=== PATIENT | female | born 1960 | race American Indian/Alaskan Native ===

== ENCOUNTER 2017-11-26 14:09 | Emergency (ER) | payer MEDICARE ==
[2017-11-26] MEDS ORDERED: ZOFRAN IV ONE (18:43)
[2017-11-26] MEDS ORDERED: NACL 0.9% 1000 ML 1,000 ML IV ONE (18:43)
[2017-11-26 19:17] LABS: Hematocrit 36.8 % (30.3-42.9); Hemoglobin 12.7 gm/dl (10.1-14.3); Mean Corpuscular HGB Conc 34 % (30-34); Mean Corpuscular Hemoglobin 33 pg (28-32); Mean Corpuscular Volume 95 fl (79-97); Platelet Count 199 K/mm3 (140-440); Red Blood Count 3.88 M/mm3 (3.65-5.03)
[2017-11-26 19:28] LABS: BUN/Creatinine Ratio 15; Blood Urea Nitrogen 12 mg/dL (7-17); Calcium 9.1 mg/dL (8.4-10.2)
[2017-11-26 19:29] LABS: Hemolysis Index 16
[2017-11-26 19:50] LABS: Basophils % (Manual) 0 % (0.0-1.8); Total Cells Counted 100
[2017-11-26 19:51] LABS: Platelet Clumps Rare; Platelet Estimate Consistent w Auto
[2017-11-26 19:52] LABS: Anisocytosis 1+; Poikilocytosis Few
[2017-11-26] MEDS ORDERED: TORADOL ONE (21:21)
[2017-11-26] MEDS ORDERED: TORADOL IV ONE (21:24)
[2017-11-26 21:40] LABS: Bilirubin,Urine NEG (Negative); Blood,Urine NEG (Negative); Color,Urine Yellow (Yellow); Nitrite,Urine NEG (Negative); Protein,Urine <15 mg/dL mg/dL (Negative); Urobilinogen,Urine < 2.0 mg/dL (<2.0); WBC,Urine < 1.0 /HPF (0.0-6.0)
[2017-11-27] MEDS ORDERED: REGLAN IV ONE (09:23)
[2017-11-27] MEDS ORDERED: PEPCID IV ONE (09:23)
--- NOTE | 2017-11-27 09:31 | Emergency Department Report ---
HPI - General Chief Complaint: Dizziness Time Seen by Provider: 11/27/17 09:06 - HPI HPI: This is a 57-year-old female presents to the emergency department with a two-week history of vomiting to the point where she says she is only bringing up bile. Over this time she has developed some epigastric discomfort as well. She denies any fever, diarrhea, back pain, hematemesis. She was seen by her PCP, Dr. Erickson, and started on some antibiotics and a PPI which she says did not provide any relief. She denies any recent travel or sick contacts at home. She has a history of GERD, bipolar disorder, schizophrenia and has a history of a hysterectomy and previous back surgeries. ED Past Medical Hx - Past Medical History Hx GERD: Yes Hx Headaches / Migraines: Yes Hx Psychiatric Treatment: Yes (Bipolar, Schizophrenia) - Surgical History Additional Surgical History: hysterectomy, Back surgeries X3, - Social History Smoking Status: Never Smoker Substance Use Type: None - Medications Home Medications: Home Medications Medication Instructions Recorded Confirmed Last Taken Type Ondansetron [Zofran Odt] 4 mg PO Q8H PRN #12 tab.rapdis 11/27/17 Unknown Rx ED Review of Systems ROS: Stated complaint: VOMITING X 2WEEKS Other details as noted in HPI Comment: All other systems reviewed and negative Constitutional: denies: chills, fever Eyes: denies: eye pain, eye discharge, vision change ENT: denies: ear pain, throat pain Respiratory: denies: cough, shortness of breath, wheezing Cardiovascular: denies: chest pain, palpitations Gastrointestinal: abdominal pain, nausea, vomiting Genitourinary: denies: urgency, dysuria, discharge Musculoskeletal: denies: back pain, joint swelling, arthralgia Skin: denies: rash, lesions Neurological: denies: headache, weakness, paresthesias Physical Exam - Physical Exam Vital Signs: Vital Signs 11/26/17 11/27/17 18:31 03:28 Temperature 97.9 F 98.1 F Pulse Rate 79 63 Respiratory 18 Rate Blood Pressure 93/57 112/67 O2 Sat by Pulse 100 100 Oximetry Physical Exam: GENERAL: The patient is well-developed well-nourished. HENT: Normocephalic. Atraumatic. Patient has moist mucous membranes. EYES: Extraocular motions are intact. Pupils equal reactive to light bilaterally. NECK: Supple. Trachea is midline. CHEST/LUNGS: Clear to auscultation. There is no respiratory distress noted. HEART/CARDIOVASCULAR: Regular. There is no tachycardia. There is no murmur. ABDOMEN: Abdomen is soft. Epigastric tenderness to palpation. No guarding or rebound tenderness. Patient has normal bowel sounds. There is no abdominal distention. SKIN: Skin is warm and dry. NEURO: The patient is awake, alert, and oriented. The patient is cooperative. The patient has no focal neurologic deficits. The patient has normal speech. MUSCULOSKELETAL: There is no tenderness or deformity. There is no limitation range of motion. There is no evidence of acute injury. ED Course Vital Signs 11/26/17 11/27/17 18:31 03:28 Temperature 97.9 F 98.1 F Pulse Rate 79 63 Respiratory 18 Rate Blood Pressure 93/57 112/67 O2 Sat by Pulse 100 100 Oximetry ED Medical Decision Making - Lab Data Result diagrams: 11/26/17 18:48 11/26/17 18:48 - Radiology Data Radiology results: image reviewed interpreted by me: Abdominal x-ray shows some nonspecific nonobstructive bowel gas. - Medical Decision Making Patient present with a 2 week history of some nausea and vomiting and now some epigastric abdominal discomfort. Abdominal x-ray does not show any acute process. Labs are mostly unremarkable including belly labs. Lipase is 3 points above the normal range but is most likely elevated secondary to her vomiting. No leukocytosis. Urinalysis does not show any urinary tract infection or ketonuria. Labs do not show any signs of dehydration. The patient was given some nausea medication, acid cake froster and eventually a GI cocktail. Upon reevaluation she is feeling improved. Probably these reasons the patient appears safe for discharge home at this time. She was encouraged to return to the emergency department with any worsening of her symptoms or any acute distress. Otherwise she will follow-up with her primary care physician and has been given a referral for gastroenterology. - Differential Diagnosis gastritis, pancreatitis, colitis, food sensitivity Critical Care Time: No Critical care attestation.: If time is entered above; I have spent that time in minutes in the direct care of this critically ill patient, excluding procedure time. ED Disposition Clinical Impression: Epigastric abdominal pain, Dehydration Nausea & vomiting Qualifiers: Vomiting type: unspecified Vomiting Intractability: non-intractable Qualified Code(s): R11.2 - Nausea with vomiting, unspecified Disposition: DC-01 TO HOME OR SELFCARE Is pt being admited?: No Condition: Stable Instructions: Dehydration (ED), Acute Nausea and Vomiting (ED), Abdominal Pain (ED) Additional Instructions: Please follow-up with your primary care physician in the next few days. Increase your oral rehydration. Return to the emergency department with any worsening of your symptoms, inability to drink fluid and/or stay hydrated, or any acute distress. I have given you a referral for a local clinical education manager, Dr. Casas, to follow up regarding your abdominal pain, nausea and vomiting. Prescriptions: Ondansetron [Zofran Odt] 4 mg PO Q8H PRN #12 tab.rapdis PRN Reason: Nausea Referrals: BABAR CASAS MD [Staff Physician] - 3-5 Days
--- NOTE | 2017-11-27 10:05 | XRay Report ---
ABDOMEN TWO VIEWS: 11/27/17 09:23:00 CLINICAL: Abdominal pain. COMPARISON:None. FINDINGS: Supine upright views demonstrate a normal bowel gas pattern with moderate stool throughout the colon.. No distended bowel and no air-fluid levels. No pneumoperitoneum. No mass or suspicious calcifications. Surgical clips in the right upper quadrant. Phleboliths in the pelvis. The bones and soft tissues are normal. IMPRESSION: Negative abdomen.
[2017-11-27] MEDS ORDERED: ALUM-MAG HYDROX-SIMETH 200-200-20MG/5ML PO ONE (11:01)
[2017-11-27] MEDS ORDERED: LIDOCAINE VISCOUS 2% PO ONE (11:01)
[2017-11-27 11:43] LABS: Alanine Aminotransferase 20 units/L (7-56); Albumin 3.9 g/dL (3.9-5); Lipase 63 units/L (13-60)
[2017-11-27 11:44] LABS: Bilirubin,Direct < 0.2 mg/dL (0-0.2)
[2017-11-27 12:23] VITALS: BP 112/71
== END 2017-11-27 12:23 | disposition home or self-care (01) ==
LOC: ED 14:09
DX: R11.2 Nausea with vomiting, unspecified (principal); R10.13 Epigastric pain; E86.0 Dehydration; K21.9 Gastro-esophageal reflux disease without esophagitis; G43.909 Migraine, unspecified, not intractable, without status migrainosus; F31.9 Bipolar disorder, unspecified; F20.9 Schizophrenia, unspecified
CPT/HCPCS: 36415; 74019; 80048; 80074; 81001; 83690; 85007; 85025; 93005; 93010; 96361; 96374; 96375; 99284; J1885; J2405; J2765; J7030

== ENCOUNTER 2019-12-17 17:58 | Emergency (ER) | payer MEDICARE ==
--- NOTE | 2019-12-17 18:37 | Emergency Department Report ---
ED Neuro Deficit HPI - General Chief Complaint: Neuro Symptoms/Deficit Stated Complaint: DIZZINESS/HEAD INJURY Time Seen by Provider: 12/17/19 18:33 Source: patient Mode of arrival: Wheelchair Limitations: No Limitations - History of Present Illness Initial Comments: [facility] Date of Service: 12/17/2019 17:09:34 Impression: Paresthesias and weakness Comments: SUspect complex migraine given her events are typically followed by headache with photophobia and nausea. She had bilateral numbness and weakness with this last episode but was alert and able to talk normally which would not be consistent with a TIA. She is back to baseline. Recommend observation. If symptoms return then would admit but otherwise would start on Nortriptyline 10mg qus and have her follow up with neurology outpatient. There was prior suspicion for partial seizures but that would not fit the clinical history today of bilateral symptoms and normal cognition. Metrics: Last Known Well: 12/17/2019 13:00:00 [employer] Notification Time: 12/17/2019 17:08:25 Arrival Time: 12/17/2019 17:07:00 Stamp Time: 12/17/2019 17:09:34 Time First Login Attempt: 12/17/2019 17:15:00 Video Start Time: 12/17/2019 17:30:04 Symptoms: paresthesias NIHSS Start Assessment Time: 12/17/2019 17:34:52 Patient is not a candidate for tPA. Patient was not deemed candidate for tPA thrombolytics because of Resolved symptoms. Video End Time: 12/17/2019 17:44:08 CT head showed no acute hemorrhage or acute core infarct. Clinical Presentation is not Suggestive of Large Vessel Occlusive Disease, Patient is not a Candidate for Thrombectomy ED Physician notified of diagnostic impression and management plan on 12/17/2019 17:43:00 Our recommendations are outlined below. Recommendations: Activate Stroke Protocol Admission/Order Set Stroke/Telemetry Floor Neuro Checks Bedside Swallow Eval DVT Prophylaxis IV Fluids, Normal Saline Head of Bed Below 30 Degrees Euglycemia and Avoid Hyperthermia (PRN Acetaminophen) Initiate Aspirin 81 MG Daily Sign Out: Discussed with Emergency Department Provider History of Present Illness: Patient is a 70 year old Female. Patient was brought by EMS for symptoms of paresthesias 70 yo F with presenting with bilateral weakness and numbness. Patient states that at 13:00 she had a spinning feeling like she was not well. She had numvnese from her chin down to her feet. SHe gets nauseated as well. She called her neurologist and it happened again. The episode lasted 20 minutes and then resolved then reoccured at 15:30 and she lost feeling in all 4 extremities. This happened 3 weeks ago and has veen to [place] twice. She gets a headache afterwards. She had 2 normal MRI brains and was started on aspirin, statin and BP meds. CT head showed no acute hemorrhage or acute core infarct. Examination: 1A: Level of Consciousness - Alert; keenly responsive + 0 1B: Ask Month and Age - Both Questions Right + 0 1C: Blink Eyes & Squeeze Hands - Performs Both Tasks + 0 2: Test Horizontal Extraocular Movements - Normal + 0 3: Test Visual Glass - No Visual Loss + 0 4: Test Facial Palsy (Use Grimace if Obtunded) - Normal symmetry + 0 5A: Test Left Arm Motor Drift - No Drift for 10 Seconds + 0 5B: Test Right Arm Motor Drift - No Drift for 10 Seconds + 0 6A: Test Left Leg Motor Drift - No Drift for 5 Seconds + 0 6B: Test Right Leg Motor Drift - No Drift for 5 Seconds + 0 7: Test Limb Ataxia (FNF/Heel-Walker) - No Ataxia + 0 8: Test Sensation - Normal; No sensory loss + 0 9: Test Language/Aphasia - Normal; No aphasia + 0 10: Test Dysarthria - Normal + 0 11: Test Extinction/Inattention - No abnormality + 0 NIHSS Score: 0 Patient was informed the Neurology Consult would happen via TeleHealth consult by way of interactive audio and video telecommunications and consented to receiving care in this manner. Due to the immediate potential for life-threatening deterioration due to underlying acute neurologic illness, I spent 35 minutes providing critical care. This time includes time for face to face visit via telemedicine, review of medical records, imaging studies and discussion of findings with providers, the patient and/or family. Dr Hetal Leal [facility] Case [id number] - Related Data Home Medications: Previous Rx's Medication Instructions Recorded Last Taken Type Ondansetron [Zofran Odt] 4 mg PO Q8H PRN #12 tab.rapdis 11/27/17 Unknown Rx Allergies/Adverse Reactions: Allergies Allergy/AdvReac Type Severity Reaction Status Date / Time Penicillins Allergy Itching Verified 11/26/17 18:40 risperidone [From Risperdal] Allergy Rash Verified 11/26/17 18:40 ED Review of Systems ROS: Stated complaint: DIZZINESS/HEAD INJURY Other details as noted in HPI ED Past Medical Hx - Past Medical History Previous Medical History?: Yes Hx GERD: Yes Hx Headaches / Migraines: Yes Hx Psychiatric Treatment: Yes (Bipolar, Schizophrenia) - Surgical History Past Surgical History?: Yes Additional Surgical History: hysterectomy, Back surgeries X3, - Social History Smoking Status: Never Smoker Substance Use Type: None - Medications Home Medications: Home Medications Medication Instructions Recorded Confirmed Last Taken Type Ondansetron [Zofran Odt] 4 mg PO Q8H PRN #12 tab.rapdis 11/27/17 Unknown Rx ED Neuro Physical Exam - General Limitations: No Limitations Suspected Stroke: No Critical care attestation.: If time is entered above; I have spent that time in minutes in the direct care of this critically ill patient, excluding procedure time. ED Disposition Clinical Impression: Seizure Disposition: OP ADMIT IP TO THIS HOSP Is pt being admited?: Yes Condition: Stable
--- NOTE | 2019-12-17 18:40 | Cat Scan Report ---
CT head/brain wo con INDICATION / CLINICAL INFORMATION: 59 years Female; neuro deficits <6hrs or sx present upon awakening. Possible seizure; right sided num bness; no weakness TECHNIQUE: Routine CT head without contrast. All CT scans at this location are performed using CT dos e reduction for ALARA by means of automated exposure control. COMPARISON: None. FINDINGS: BRAIN / INTRACRANIAL CONTENTS: No acute hemorrhage, mass effect, midline shift, hydrocephalus, or acu te, large territorial infarct. No chronic infarct or atrophy appreciated. No significant white matter abnormality. CRANIOCERVICAL JUNCTION: No significant abnormality. ORBITS: No significant abnormality of visualized orbits. SINUSES / MASTOIDS: No significant abnormality the visualized paranasal sinuses or mastoid air cells. ADDITIONAL FINDINGS: None. IMPRESSION: 1. No acute This exam was performed as part of a code stroke protocol. The exam was completed on 12/17/[address] The exam was reviewed at [address] Carbone was notified at 17[address]ER. Signer Name: Manuel Crowe MD, III Signed: 12/17/2019 6:36 PM Workstation Name: [id number]
[2019-12-17 18:53] LABS: Basophils % (Auto) 0.4 % (0.0-1.8); Eosinophils % (Auto) 0.6 % (0.0-4.3); Hematocrit 32.9 % (30.3-42.9); Hemoglobin 11.4 gm/dl (10.1-14.3); Lymphocytes # (Auto) 2.6 K/mm3 (1.2-5.4); Lymphocytes % (Auto) 42.5 % (13.4-35.0); Mean Corpuscular HGB Conc 35 % (30-34); Mean Corpuscular Volume 94 fl (79-97); Monocytes # (Auto) 0.5 K/mm3 (0.0-0.8); Monocytes % (Auto) 8.4 % (0.0-7.3); Platelet Count 242 K/mm3 (140-440); Red Blood Count 3.51 M/mm3 (3.65-5.03); Red Cell Distribution Width 13.6 % (13.2-15.2)
[2019-12-17 19:00] LABS: INR 0.97 (0.87-1.13)
[2019-12-17 19:01] LABS: Partial Thromboplastin Time 27.7 Sec. (24.2-36.6)
[2019-12-17] MEDS ORDERED: KETOROLAC 30 MG/1 ML INJ IV ONE (19:09)
[2019-12-17 19:12] LABS: BUN/Creatinine Ratio 12; Blood Urea Nitrogen 15 mg/dL (7-17); Calcium 9.2 mg/dL (8.4-10.2); Hemolysis Index 4
[2019-12-17] MEDS ORDERED: levETIRAcetam 1000 MG/NS 0.75% 1,000 MG/100 ML BAG IV ONE (19:50)
[2019-12-17] MEDS ORDERED: ONDANSETRON 4 MG/2 ML INJ IV ONE (20:19)
--- NOTE | 2019-12-17 21:15 | Emergency Department Report ---
ED General Adult HPI - General Chief complaint: Neuro Symptoms/Deficit Stated complaint: DIZZINESS/HEAD INJURY Time Seen by Provider: 12/17/19 18:33 Source: patient Mode of arrival: Wheelchair Limitations: No Limitations - History of Present Illness Initial comments: Patient is a 59-year-old female who is presenting with episode of loss of consciousness. Patient was at a long-term facility and had a episode of loss of consciousness. Patient's caregiver is currently not here to give any information. Patient states when she came to she was having some numbness to the right arm as well as some mild weakness. Patient states she does have a history of seizures and takes Depakote for seizures and for mood disorder. Patient states that normally after her "seizures" she does not have weakness or numbness. Patient denies any fevers chills cough cold congestion. Patient states she was told that she struck her head during this episode she does have a mild headache. Severity scale (0 -10): 2 - Related Data Previous Rx's Medication Instructions Recorded Last Taken Type Ondansetron [Zofran Odt] 4 mg PO Q8H PRN #12 tab.rapdis 11/27/17 Unknown Rx levETIRAcetam [Keppra TAB] 500 mg PO BID #60 tablet 12/17/19 Unknown Rx Allergies Allergy/AdvReac Type Severity Reaction Status Date / Time Penicillins Allergy Itching Verified 11/26/17 18:40 risperidone [From Risperdal] Allergy Rash Verified 11/26/17 18:40 ED Review of Systems ROS: Stated complaint: DIZZINESS/HEAD INJURY Other details as noted in HPI Comment: All other systems reviewed and negative ED Past Medical Hx - Past Medical History Previous Medical History?: Yes Hx GERD: Yes Hx Headaches / Migraines: Yes Hx Psychiatric Treatment: Yes (Bipolar, Schizophrenia) - Surgical History Past Surgical History?: Yes Additional Surgical History: hysterectomy, Back surgeries X3, - Social History Smoking Status: Never Smoker Substance Use Type: None - Medications Home Medications: Home Medications Medication Instructions Recorded Confirmed Last Taken Type Ondansetron [Zofran Odt] 4 mg PO Q8H PRN #12 tab.rapdis 11/27/17 Unknown Rx levETIRAcetam [Keppra TAB] 500 mg PO BID #60 tablet 12/17/19 Unknown Rx ED Physical Exam - General Limitations: No Limitations General appearance: alert, in no apparent distress - Head Head exam: Present: atraumatic, normocephalic - Eye Eye exam: Present: normal appearance, PERRL, EOMI - ENT ENT exam: Present: normal orophraynx, mucous membranes moist - Neck Neck exam: Present: normal inspection - Respiratory Respiratory exam: Present: normal lung sounds bilaterally. Absent: respiratory distress, wheezes, rales, rhonchi - Cardiovascular Cardiovascular Exam: Present: regular rate, normal rhythm. Absent: systolic murmur, diastolic murmur, rubs, gallop - GI/Abdominal GI/Abdominal exam: Present: soft, normal bowel sounds. Absent: distended, tenderness, guarding, rebound - Extremities Exam Extremities exam: Present: normal inspection - Back Exam Back exam: Present: normal inspection - Neurological Exam Neurological exam: Present: alert, oriented X3, CN II-XII intact. Absent: altered, motor sensory deficit - Psychiatric Psychiatric exam: Present: normal affect, normal mood - Skin Skin exam: Present: warm, dry, intact, normal color. Absent: rash ED Course Vital Signs 12/17/19 12/17/19 18:53 19:02 Pulse Rate 68 73 Respiratory 16 Rate Blood Pressure 116/35 [Left] O2 Sat by Pulse 100 Oximetry ED Medical Decision Making - Lab Data Result diagrams: 12/17/19 18:32 12/17/19 18:32 Lab Results 12/17/19 12/17/19 12/17/19 Range/Units 18:14 18:32 18:32 WBC 6.1 (4.5-11.0) K/mm3 RBC 3.51 L (3.65-5.03) M/mm3 Hgb 11.4 (10.1-14.3) gm/dl Hct 32.9 (30.3-42.9) % MCV 94 (79-97) fl MCH 33 H (28-32) pg MCHC 35 H (30-34) % RDW 13.6 (13.2-15.2) % Plt Count 242 (140-440) K/mm3 Lymph % (Auto) 42.5 H (13.4-35.0) % [place] % (Auto) 8.4 H (0.0-7.3) % Eos % (Auto) 0.6 (0.0-4.3) % Baso % (Auto) 0.4 (0.0-1.8) % Lymph # 2.6 (1.2-5.4) K/mm3 [place] # 0.5 (0.0-0.8) K/mm3 Eos # 0.0 (0.0-0.4) K/mm3 Baso # 0.0 (0.0-0.1) K/mm3 Seg Neutrophils % 48.1 (40.0-70.0) % Seg Neutrophils # 2.9 (1.8-7.7) K/mm3 PT 13.0 (12.2-14.9) Sec. INR 0.97 (0.87-1.13) APTT 27.7 (24.2-36.6) Sec. Thrombin Time (15.1-19.6) Sec. Sodium (137-145) mmol/L Potassium (3.6-5.0) mmol/L Chloride (98-107) mmol/L Carbon Dioxide (22-30) mmol/L Anion Gap mmol/L BUN (7-17) mg/dL Creatinine (0.7-1.2) mg/dL Estimated GFR ml/min BUN/Creatinine Ratio % Glucose (65-100) mg/dL POC Glucose 130 H (70-105) Calcium (8.4-10.2) mg/dL Troponin T (0.00-0.029) ng/mL 12/17/19 12/17/19 12/17/19 Range/Units 18:32 18:32 19:39 WBC (4.5-11.0) K/mm3 RBC (3.65-5.03) M/mm3 Hgb (10.1-14.3) gm/dl Hct (30.3-42.9) % MCV (79-97) fl MCH (28-32) pg MCHC (30-34) % RDW (13.2-15.2) % Plt Count (140-440) K/mm3 Lymph % (Auto) (13.4-35.0) % [place] % (Auto) (0.0-7.3) % Eos % (Auto) (0.0-4.3) % Baso % (Auto) (0.0-1.8) % Lymph # (1.2-5.4) K/mm3 [place] # (0.0-0.8) K/mm3 Eos # (0.0-0.4) K/mm3 Baso # (0.0-0.1) K/mm3 Seg Neutrophils % (40.0-70.0) % Seg Neutrophils # (1.8-7.7) K/mm3 PT (12.2-14.9) Sec. INR (0.87-1.13) APTT (24.2-36.6) Sec. Thrombin Time 15.7 (15.1-19.6) Sec. Sodium 135 L (137-145) mmol/L Potassium 3.1 L (3.6-5.0) mmol/L Chloride 94.1 L (98-107) mmol/L Carbon Dioxide 23 (22-30) mmol/L Anion Gap 21 mmol/L BUN 15 (7-17) mg/dL Creatinine 1.3 H (0.7-1.2) mg/dL Estimated GFR 51 ml/min BUN/Creatinine Ratio 12 % Glucose 89 (65-100) mg/dL POC Glucose 106 H (70-105) Calcium 9.2 (8.4-10.2) mg/dL Troponin T < 0.010 (0.00-0.029) ng/mL - Medical Decision Making Patient was monitored here in the emergency department. We did have neurology see the patient and they believe the patient likely had a complex migraine versus seizure. Was able to speak with the patient's caregiver who stated that the symptoms did appear to be a traditional tonic-clonic seizure with postictal phase afterwards. Patient is on Depakote but patient was loaded with Keppra will be sent home with Keppra Follow-up with neurology. Critical care attestation.: If time is entered above; I have spent that time in minutes in the direct care of this critically ill patient, excluding procedure time. ED Disposition Clinical Impression: Seizure Disposition: DC-01 TO HOME OR SELFCARE Is pt being admited?: No Does the pt Need Aspirin: No Condition: Stable Instructions: Epilepsy (ED) Prescriptions: levETIRAcetam [Keppra TAB] 500 mg PO BID #60 tablet Referrals: ANISHA NAJERA MD [Referring] - 3-5 Days Time of Disposition: 21:19
[2019-12-17 21:35] VITALS: BP 94/54
== END 2019-12-17 21:19 | disposition home or self-care (01) ==
LOC: ED 17:58
DX: R56.9 Unspecified convulsions (principal); K21.9 Gastro-esophageal reflux disease without esophagitis; F25.0 Schizoaffective disorder, bipolar type; Z79.899 Other long term (current) drug therapy; Z88.8 Allergy status to other drugs, medicaments and biological substances; Z88.0 Allergy status to penicillin
CPT/HCPCS: 36415; 70450; 80048; 82962; 84484; 85025; 85610; 85670; 85730; 96365; 96375; 99284; J1885; J1953; J2405